=== PATIENT | female | born 1975 | race Caucasian/White ===

== ENCOUNTER → 2016-05-11 | Emergency (ER) | payer SELFPAY ==
--- NOTE | 2016-05-11 13:57 | DIAGNOSTIC IMAGING REPORT ---
PROCEDURE: XR KNEE 4 VIEWS - LEFT INDICATION: FOREIGN BODY - NEEDLE TECHNIQUE: Four views. COMPARISON: None. FINDINGS: Osseous structures, joint spaces and soft tissues are normal. No evidence of a radiopaque foreign body. IMPRESSION: 1. Normal left knee.
--- NOTE | 2016-05-11 14:15 | ED ORDER SUMMARY ---
..... Patient: DANIELA ECKERT OrderSheet [facility] VisitID: [id number] [address] [place] [address] 40y, F Registration Date/Time: 05/11/2016 ORDER SHEET Weight: 77.1 kg (estimated) Allergies: Imitrex, Penicillin GENERAL ORDERS: Knee 4V Left Urgent (13:34 05/11/2016 Wilver A.R.N.P.) ([facility] 13:35 Lilibeth) (13:54 Lukas R.N.) MEDICATION ORDERS: IV FLUIDS: ORDER SHEET NOTES: [Electronically signed by Danita Phillips R.N. (14:34 05/11/2016)] [Electronically signed by Aleta McR.N.P. (17:12 05/11/2016)] [Electronically locked/signed by Danita Phillips R.N. (14:34 05/11/2016)]
--- NOTE | 2016-05-11 14:15 | ED ORDER SUMMARY ---
..... Patient: DANIELA ECKERT OrderSheet [facility] VisitID: [id number] [address] [place] [address] 40y, F Registration Date/Time: 05/11/2016 ORDER SHEET Weight: 77.1 kg (estimated) Allergies: Imitrex, Penicillin GENERAL ORDERS: Knee 4V Left Urgent (13:34 05/11/2016 Wilver A.R.N.P.) ([facility] 13:35 Lilibeth) (13:54 Lukas R.N.) MEDICATION ORDERS: IV FLUIDS: ORDER SHEET NOTES: [Electronically signed by Danita Phillips R.N. (14:34 05/11/2016)] [Electronically signed by Aleta McR.N.P. (17:12 05/11/2016)] [Electronically locked/signed by Danita Phillips R.N. (14:34 05/11/2016)]
--- NOTE | 2016-05-11 14:15 | ED NURSING NOTES ---
Clinical Report - Nurses [facility] [address] [place] [address] 05/11/2016 13:12 Patient: DANIELA ECKERT TRIAGE Triage time 13:May 11 2016. Acuity: LEVEL 3. Chief Complaint: LEFT LOWER EXTREMITY PAIN. Alert. No acute distress. --13:28 Danita Phillips R.N. 13:21 05/11/16. BP: 194/85. HR: 68. RR: 18. O2 saturation: 100%. Temp: 97.4 F. Pain level now: 0/10. --13:28 Danita Phillips R.N. Weight: 77.1 kg estimated. Height/Length: 68 inches Estimated. BMI: 25.9. --14:33 Danita Phillips R.N. Medications None. --13:24 Danita Phillips R.N. Allergies Imitrex. --13:24 Danita Phillips R.N. Penicillin. --13:24 Danita Phillips R.N. History Arrived by private vehicle. Historian: patient. Accompanied by family. Location of injuries: left knee. This occurred (about 1 months ago). Occurred at home. ( patient states that she has a sewing needle in her left knee). 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 PAST MEDICAL HX: Tetanus status: up-to-date. Last normal menstrual period- Apr 26 2016. Sexual history - sexually active. No contraception. Denies current . SOCIAL HX: Current every day heavy tobacco smoker (cigarette)- less than 1 pack per day. History of drug use: marijuana. Recently used drugs yesterday. No alcohol use. FALL RISK ASSESSMENT: Fall risk assessment completed. No fall risk identified. NUTRITIONAL RISK ASSESSMENT: The nutritional risk assessment revealed no deficiencies. FUNCTIONAL ASSESSMENT: Functional assessment: no impairments noted. LEARNING NEEDS ASSESSMENT: The learning needs assessment revealed no barriers. ABUSE ASSESSMENT: Abuse assessment: The patient was asked "Do you feel safe in your home?". SKIN INTEGRITY ASSESSMENT: Skin integrity risk assessment completed. No skin integrity risk identified. --13:28 Danita Phillips R.N. ADDITIONAL SURGERIES: Appendectomy. --13:24 Danita Phillips R.N. Assessment The patient states feels the same. --13:28 Danita Phillips R.N. Interventions ID and allergy band on patient. To room. --13:28 Danita Phillips R.N. PHYSICAL ASSESSMENT GENERAL / NEURO / PSYCH: Oriented X 4. Alert. Appears in no acute distress. Appears anxious. EXTREMITIES: Left knee: tenderness and suspected foreign body. SKIN: Single healing wound present on the left knee. Skin intact. Skin is warm and dry. --13:29 Danita Phillips R.N. NURSING PROGRESS NOTES Patient gowned. Two patient identifiers checked. Call light placed in reach. Side rails up x 1. Bed placed in lowest position. Brakes of bed on. Patient ready for evaluation- chart flagged. --13:29 Danita Phillips R.N. DISPOSITION / DISCHARGE Departure time: 14:22 May 11 2016. Condition at departure: unchanged. The following issues were addressed: pain control and follow up care. No learning barriers present. Discharge instructions provided and reviewed with the patient. Reviewed referral to a primary care physician. Patient verbalized understanding. Written instructions provided in [place]. The patient was discharged home and accompanied by spouse. She left the Emergency Department ambulatory and via private vehicle. Spouse driving. FALL RISK ASSESSMENT: Fall risk assessment completed. No fall risk identified. --14:33 Danita Pihllips R.N. 14:31 05/11/16. BP: 158/83. HR: 61. O2 saturation: 100%. Pain level now: 0/10. --14:33 Danita Phillips R.N. Locked/Released at 05/11/2016 14:34 by Danita Phillips R.N.
--- NOTE | 2016-05-11 14:15 | ED CLINICAL REPORT ---
Clinical Report - Physicians/Mid Levels [facility] [address] [place] [address] 05/11/2016 13:12 Patient: DANIELA ECKERT Time Seen: 13:24; initial patient contact, initial documentation, patient care assumed. Arrived- By private vehicle. Historian- patient. HISTORY OF PRESENT ILLNESS Chief Complaint: Injury to left knee. The injury happened about 1 months ago. Occurred at home. ( knelt down and thinks sewing needle went into knee). The patient sustained a puncture wound from a needle. No redness noted, red streak noted, swelling noted, drainage noted or fever noted. No increased pain noted or numbness noted. Patient is not experiencing pain. Patient denies injury to the head. No other injury. REVIEW OF SYSTEMS No swelling, tingling, weakness, numbness or skin laceration. She has no pain on weight bearing. All systems otherwise negative, except as recorded above. PAST HISTORY See nurses notes. ( ADDITIONAL SURGERIES: Appendectomy. --13:24 Danita Phillips, Jared.). SOCIAL HISTORY Heavy tobacco smoker. History of occasional drug use: marijuana. No alcohol use. No recent travel. Is a local resident. ADDITIONAL NOTES The nursing notes have been reviewed with agreement regarding the chief complaint, HPI, ROS, PMH and patient medications and allergies. PHYSICAL EXAM Vital Signs: 05/11/2016 13:21 BP: 194/85. HR: 68. RR: 18. O2 saturation: 100%. Temp: 97.4 F. Pain level now: 0/10. Have been reviewed as abnormal and appear to be correct. Hypertensive. Heart rate normal. Respiratory rate normal. Temperature normal. Oxygen saturation normal. Appearance: Alert. Oriented X3. No acute distress. Head: Head atraumatic. Eyes: Pupils equal, round and reactive to light. Eyes normal inspection. Respiratory: No respiratory distress. Skin: Skin intact. Skin warm and dry. Normal skin color. Normal skin turgor. Extremities: Left knee: single puncture wound located in the infrapatellar area. Neurovascular intact distally. (healed pw, no s/s of infection and no palpable fb). No ligamentous laxity present. No joint effusion. No erythema, tenderness, swelling, laceration or abrasion. No ecchymosis, foreign body or deformity. No limitation in ROM. Lower extremity exam otherwise negative. Extremities otherwise negative. Gait: Normal gait. Neuro, Vascular and Tendons: Vascular status intact. Sensation intact. Motor intact. Tendon function intact. Neuro: Oriented X 3. No motor deficit. No sensory deficit. Note: isolated injury to knee. LABS, X-RAYS, AND EKG X-Rays: Left knee negative. Lt Knee X-ray: (IMPRESSION: 1. Normal left knee. Electronically Final signed by:Tej Lemon MD 05/11/2016 1:57:12 PM). The X-rays were interpreted by the radiologist and contemporaneously by me. PROGRESS AND PROCEDURES Patient counseled in person regarding the patient's stable condition, test results and diagnosis. 14:14. Differential Diagnosis: Other possible considerations: fb, wound infection. Above considerations are based on history, physical exam and X-Ray data. Differential diagnosis was discussed with patient. Disposition: Discharged home in good and unchanged condition (14:14). Condition: good and stable. CLINICAL IMPRESSION Single superficial puncture wound to the left knee. Delayed treatment. No puncture wound with foreign body present or infected puncture wound. Not penetrating into body cavity. INSTRUCTIONS Protect wound and keep wound area clean. Soak in warm soapy water twice daily. (htn). Warnings: GENERAL WARNINGS: Return or contact your physician immediately if your condition worsens or changes unexpectedly, if not improving as expected, or if other problems arise. Specifically return if problem worsens. Follow-up: Follow up with your doctor in about one week as needed and for wound check. Call for an appointment. Summary of care provided to patient. Screening today revealed the patient's blood pressure to be in the hypertensive range. The patient should follow up with a primary care provider for blood pressure management. Understanding of the discharge instructions verbalized by patient. (Electronically signed by Aleta Mc A.R.N.P. 05/11/2016 17:12)
--- NOTE | 2016-05-11 14:15 | ED NURSING NOTES ---
Clinical Report - Nurses [facility] [address] [place] [address] 05/11/2016 13:12 Patient: DANIELA ECKERT TRIAGE Triage time 13:May 11 2016. Acuity: LEVEL 3. Chief Complaint: LEFT LOWER EXTREMITY PAIN. Alert. No acute distress. --13:28 Danita Phillips R.N. 13:21 05/11/16. BP: 194/85. HR: 68. RR: 18. O2 saturation: 100%. Temp: 97.4 F. Pain level now: 0/10. --13:28 Danita Phillips R.N. Weight: 77.1 kg estimated. Height/Length: 68 inches Estimated. BMI: 25.9. --14:33 Danita Phillips R.N. Medications None. --13:24 Danita Phillips R.N. Allergies Imitrex. --13:24 Danita Phillips R.N. Penicillin. --13:24 Danita Phillips R.N. History Arrived by private vehicle. Historian: patient. Accompanied by family. Location of injuries: left knee. This occurred (about 1 months ago). Occurred at home. ( patient states that she has a sewing needle in her left knee). 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 PAST MEDICAL HX: Tetanus status: up-to-date. Last normal menstrual period- Apr 26 2016. Sexual history - sexually active. No contraception. Denies current . SOCIAL HX: Current every day heavy tobacco smoker (cigarette)- less than 1 pack per day. History of drug use: marijuana. Recently used drugs yesterday. No alcohol use. FALL RISK ASSESSMENT: Fall risk assessment completed. No fall risk identified. NUTRITIONAL RISK ASSESSMENT: The nutritional risk assessment revealed no deficiencies. FUNCTIONAL ASSESSMENT: Functional assessment: no impairments noted. LEARNING NEEDS ASSESSMENT: The learning needs assessment revealed no barriers. ABUSE ASSESSMENT: Abuse assessment: The patient was asked "Do you feel safe in your home?". SKIN INTEGRITY ASSESSMENT: Skin integrity risk assessment completed. No skin integrity risk identified. --13:28 Danita Phillips R.N. ADDITIONAL SURGERIES: Appendectomy. --13:24 Danita Phillips R.N. Assessment The patient states feels the same. --13:28 Danita Phillips R.N. Interventions ID and allergy band on patient. To room. --13:28 Danita Phillips R.N. PHYSICAL ASSESSMENT GENERAL / NEURO / PSYCH: Oriented X 4. Alert. Appears in no acute distress. Appears anxious. EXTREMITIES: Left knee: tenderness and suspected foreign body. SKIN: Single healing wound present on the left knee. Skin intact. Skin is warm and dry. --13:29 Danita Phillips R.N. NURSING PROGRESS NOTES Patient gowned. Two patient identifiers checked. Call light placed in reach. Side rails up x 1. Bed placed in lowest position. Brakes of bed on. Patient ready for evaluation- chart flagged. --13:29 Danita Phillips R.N. DISPOSITION / DISCHARGE Departure time: 14:22 May 11 2016. Condition at departure: unchanged. The following issues were addressed: pain control and follow up care. No learning barriers present. Discharge instructions provided and reviewed with the patient. Reviewed referral to a primary care physician. Patient verbalized understanding. Written instructions provided in [place]. The patient was discharged home and accompanied by spouse. She left the Emergency Department ambulatory and via private vehicle. Spouse driving. FALL RISK ASSESSMENT: Fall risk assessment completed. No fall risk identified. --14:33 Danita Phillips R.N. 14:31 05/11/16. BP: 158/83. HR: 61. O2 saturation: 100%. Pain level now: 0/10. --14:33 Danita Phillips R.N. Locked/Released at 05/11/2016 14:34 by Danita Phillips R.N.
--- NOTE | 2016-05-11 17:12 | ED MED RECONCILIATION SUMMARY ---
Patient: DANIELA ECKERT Medication Reconciliation Report [facility] VisitID: [id number] [address] [place] [address] 40y, F Registration Date/Time: 05/11/2016 Weight: 77.1 kg Height/Length: 68 in. BMI: 25.9 ALLERGIES: Imitrex, Penicillin The patient's Home Medications are listed below: NONE. The source(s) of the original Home Medication information: Not obtained. The following Medications were given to the patient in the Emergency Department: None. The following Medications were prescribed to the patient: None.
--- NOTE | 2016-05-11 17:12 | ED DISCHARGE INSTRUCTIONS ---
Patient: DANIELA ECKERT General Instructions [facility] VisitID: [id number] [place] [address] 40y, F Registration Date/Time: 05/11/2016 Single superficial puncture wound to the left knee. Delayed treatment. No puncture wound with foreign body present or infected puncture wound. Not penetrating into body cavity. INSTRUCTIONS Protect wound and keep wound area clean. Soak in warm soapy water twice daily. (htn). Warnings: GENERAL WARNINGS: Return or contact your physician immediately if your condition worsens or changes unexpectedly, if not improving as expected, or if other problems arise. Specifically return if problem worsens. Follow-up: Follow up with your doctor in about one week as needed and for wound check. Call for an appointment. Summary of care provided to patient. Screening today revealed the patient's blood pressure to be in the hypertensive range. The patient should follow up with a primary care provider for blood pressure management. Understanding of the discharge instructions verbalized by patient. ADDITIONAL INFORMATION Puncture Wound (General) A puncture wound is a hole through the skin. Bacteria, dirt and debris can be drawn into this wound, increasing the risk of infection. However, antibiotics are usually not prescribed for this injury unless signs of infection are already present. Therefore, it is important to observe the wound closely for the signs of infection listed below. Home Care: If your wound is on an arm, hand, leg, or foot, keep that part raised during the first 48 hours to reduce swelling and pain. Keep the wound clean and dry. If a bandage was applied and it becomes wet or dirty, replace it. Otherwise, leave it in place for the next 24 hours. You may use acetaminophen (Tylenol) or ibuprofen (Motrin, Advil) to control pain, unless another medicine was prescribed. [NOTE: If you have chronic liver or kidney disease or ever had a stomach ulcer or GI bleeding, talk with your doctor before using these medicines.] You may shower as usual. However, do not soak the area in water (no baths or swimming) during the first 48 hours. Follow Up: Most puncture wounds heal within 10 days. However, an infection may sometimes occur despite proper treatment. If small particles were drawn into the puncture wound (such as fragments of cloth, rubber, wood or dirt), an infection may occur. These fragments are very hard to find during the first exam since it is not possible to get a good look inside a puncture wound and they do not show on an X-ray. Antibiotics and a minor surgical procedure to find and remove the foreign object will be needed if this happens. Therefore, check the wound daily for the warning signs listed below. Get Prompt Medical Attention if any of the following occur: SIGNS OF INFECTION: Increasing pain in the wound Redness, swelling, pus or red lines coming from the wound Fever of 100.4F (38C) or higher, or as directed by your healthcare provider You have been given the following additional information: Puncture Wound, General (Electronically signed by Aleta Mc A.R.NAugustus 05/11/2016 17:12)
--- NOTE | 2016-05-11 17:12 | ED MAR SUMMARY ---
..... Medication Administration Record [facility] [address], [place] [id number] Patient: DANIELA ECKERT Visit ID: [id number] 40y, F Weight: 77.1 kg Height/Length: 68 in BMI: 25.9 ALLERGIES: Penicillin, Imitrex
--- NOTE | 2016-05-11 17:12 | ED MAR SUMMARY ---
..... Medication Administration Record [facility] [address] [place], [place] [id number] Patient: DANIELA ECKERT Visit ID: [id number] 40y, F Weight: 77.1 kg Height/Length: 68 in BMI: 25.9 ALLERGIES: Penicillin, Imitrex
--- NOTE | 2016-05-11 17:12 | ED MED RECONCILIATION SUMMARY ---
Patient: DANIELA ECKERT Medication Reconciliation Report [facility] VisitID: [id number] [address] [place] [address] 40y, F Registration Date/Time: 05/11/2016 Weight: 77.1 kg Height/Length: 68 in. BMI: 25.9 ALLERGIES: Imitrex, Penicillin The patient's Home Medications are listed below: NONE. The source(s) of the original Home Medication information: Not obtained. The following Medications were given to the patient in the Emergency Department: None. The following Medications were prescribed to the patient: None.
== END ==
LOC: ED SRH 13:08
DX: S81.032A Puncture wound without foreign body, left knee, initial encounter (principal); W27.3XXA Contact with needle (sewing), initial encounter; Y93.89 Activity, other specified; Y92.009 Unspecified place in unspecified non-institutional (private) residence as the place of occurrence of the external cause; Y99.9 Unspecified external cause status; F17.210 Nicotine dependence, cigarettes, uncomplicated; Z88.0 Allergy status to penicillin; Z88.8 Allergy status to other drugs, medicaments and biological substances